=== PATIENT | female | born 1960 | race Caucasian/White ===

== ENCOUNTER 2020-01-10 18:25 | Emergency (ER) | payer BC ==
[2020-01-10 18:58] VITALS: BP 167/75; PULSE 66
[2020-01-10] MEDS ORDERED: Ondansetron 4 MG Tab.DIS PO ONE (19:55)
[2020-01-10] MEDS ORDERED: Acetaminophen/oxyCODONE 325-5 MG Tab PO ONE (19:55)
--- NOTE | 2020-01-10 19:57 | EDM.PDOC ---
ED HPI GENERAL MEDICAL PROBLEM - General Chief Complaint: Back Pain or Injury Stated Complaint: injury from a fall Time Seen by Provider: 01/10/20 19:46 Source of Information: Reports: Patient, Family History Limitations: Reports: No Limitations - History of Present Illness INITIAL COMMENTS - FREE TEXT/NARRATIVE: 59-year-old female presents to the ED after slipping and falling on the ice while shoveling snow today. She fell about 1400 hrs. She states her feet went out completely from underneath her and she fell very hard primarily on her buttocks and lower back. She has injuries to her left arm and left elbow area but she has full range of motion and these appear to be soft tissue in origin. She denies hitting her head or losing consciousness. She has no neck pain at present. She has no rib pain. Pain is mostly along the right posterior pelvis along the iliac crest and slightly lower. It radiates towards her right hip and into the SI joint distribution. There is also mild mild pain at the lower lumbar spine area making it difficult to weight-bear. She is walking with a terrible limp when she weight bares. She has chronic left-sided knee pain. She states she did not injure her lower extremities during the fall.. Onset: Today Onset Date: 01/10/20 Onset Time: 14:00 Duration: Hour(s): Location: Reports: Back. Denies: Head, Face, Neck, Chest, Pelvis Quality: Reports: Ache (Right lower back and right posterior iliac crest area and right SI joint area), Throbbing Severity: Moderate (6 out of 10.) Improves with: Reports: Rest Worsens with: Reports: Other Context: Reports: Trauma (Shoveling snow earlier today.). Denies: Activity ( With trying to put weight on the right lower extremity), Exercise, Lifting, Sick Contact Associated Symptoms: Reports: No Other Symptoms. Denies: Confusion, Chest Pain , Cough, cough w sputum, Diaphoresis, Fever/Chills, Headaches, Loss of Appetite , Malaise, Nausea/Vomiting, Rash, Seizure, Shortness of Breath, Syncope Treatments CUSTOMER SUPPORT EXECUTIVE: Reports: Acetaminophen Right Lower Back Pain Score (Numeric/FACES): 8 - Related Data Allergies Allergy/AdvReac Type Severity Reaction Status Date / Time allopurinol AdvReac Cough Verified 01/10/20 18:36 lisinopril AdvReac Cough Verified 11/02/18 14:19 Home Meds: Home Meds Levothyroxine Sodium [Synthroid] 200 mcg PO DAILY 11/10/14 [History] Losartan [Cozaar] 50 mg PO DAILY 11/10/14 [History] hydroCHLOROthiazide [Hydrochlorothiazide] 25 mg PO DAILY 11/10/14 [History] Multivitamin [Multivitamins] 1 each PO DAILY 07/04/16 [History] Aspirin [Low Dose Aspirin EC] 81 mg PO DAILY 11/02/18 [History] Rosuvastatin [Crestor] 5 mg PO DAILY 11/02/18 [History] metFORMIN [Glucophage] 500 mg PO DAILY 11/02/18 [History] oxyCODONE HCl/Acetaminophen [Percocet 5-325 mg Tablet] 1 - 2 each PO Q4H PRN # 20 tablet 01/10/20 [Rx] Past Medical History HEENT History: Reports: Impaired Vision Other HEENT History: wears eyeglasses. Cardiovascular History: Reports: High Cholesterol, Hypertension Other Cardiovascular History: cardiomegaly Respiratory History: Reports: None Gastrointestinal History: Reports: Diverticulosis, GERD, Hiatal Hernia Genitourinary History: Reports: Urinary Incontinence PATTERN MAKER History: Reports: Musculoskeletal History: Reports: None Neurological History: Reports: None Psychiatric History: Reports: None Endocrine/Metabolic History: Reports: Diabetes, Type II, Hypothyroidism, Obesity /BMI 30+ Hematologic History: Reports: Blood Transfusion(s) Immunologic History: Reports: None Oncologic (Cancer) History: Reports: Colon, Thyroid Dermatologic History: Reports: None - Infectious Disease History Infectious Disease History: Reports: Chicken Pox, Measles, Mumps - Past Surgical History GI Surgical History: Reports: Colon, Hernia, Abdominal Female Surgical History: Reports: D&C, Hysterectomy, Salpingo-Oophorectomy Endocrine Surgical History: Reports: Thyroidectomy Social & Family History - Family History Family Medical History: Noncontributory - Tobacco Use Smoking Status *Q: Never Smoker - Caffeine Use Caffeine Use: Reports: Coffee, Soda - Recreational Drug Use Recreational Drug Use: No - Living Situation & Occupation Living situation: Reports: , with Spouse, with Family (2 granddaughters) 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 Denies: Chest Pain, Claudication, Edema, Lightheadedness, Orthopnea, Palpitations Endocrine: Reports: Fatigue GI/Abdominal: Reports: No Symptoms : Reports: Frequency Musculoskeletal: Reports: Back Pain (Back pain. Today pain is mostly felt along the posterior aspect of the right iliac crest and her lower back a L4-L5 area and in the SI joint area of her right buttock.), Joint Pain (He has osteoarthritic changes in her knees hips neck and lower back.) Skin: Reports: Bruising (He has bruises forming over the left lateral proximal forearm and left posterior mid humerus but has full unopposed range of motion of the arm and forearm with full pronation supination. Upper extremity is uninjured. She has no chest wall tenderness.) Neurological: Reports: No Symptoms, Confusion, Dizziness, Headache. Denies: Numbness Psychiatric: Reports: No Symptoms Hematologic/Lymphatic: Reports: No Symptoms Immunologic: Reports: No Symptoms ED EXAM,LOWER BACK PAIN/INJURY - Physical Exam Exam: See Below Exam Limited By: No Limitations General Appearance: Alert, WD/WN, Mild Distress, Other (Temperature is 36.4. Heart rate was 66. Respiratory to 16 O2 sats are 94% on room air BP is elevated 1 6775 when she first came in.) Head: Atraumatic, Normocephalic, Other Neck: Normal Inspection (No outward signs of any head or facial trauma.), Supple , Non-Tender, Full Range of Motion. No: Lymphadenopathy (L), Lymphadenopathy (R ) Respiratory/Chest: No Respiratory Distress, Lungs Clear, Normal Breath Sounds, No Accessory Muscle Use, Chest Non-Tender Cardiovascular: Normal Peripheral Pulses, Regular Rate, Rhythm, No Gallop, No Murmur, No Rub. No: No Edema GI/Abdominal: Normal Bowel Sounds, Soft, Non-Tender, No Organomegaly, No Mass, Pelvis Stable, Other (Abdominal girth limits ability to palpate solid organs.) Back Exam: Other (Examination of the back shows some tenderness at the L4-L5 facet joints bilaterally a little worse on the right side as compared to the left. There is no midline tenderness. There is no SI joint tenderness on the left side. On the right side there is a linear band of swelling and superficial abrasion along the iliac crest on the right side and just inferior to it. It is a band that travels up towards the lateral iliac crest. There is tenderness on palpation of the superior aspect of the sacroiliac joint. No tenderness over the greater trochanteric process or hip. She is able to weight- bear but walks with a terrible limp. ) Extremities: Pedal Edema, Other (Pitting edema both lower extremities. Patient has) Neurological: Alert ( bilateral osteoarthritic changes in both knees. No injuries evident.), Normal Mood/Affect, Normal Dorsiflexion, CN II-XII Intact, No Motor/Sensory Deficits, Oriented x 3. No: Normal Gait Psychiatric: Normal Affect, Normal Mood Skin Exam: Dry, Intact, Normal Color, No Rash Course - Vital Signs Last Recorded V/S: Last Vital Signs Temp 36.4 C 01/10/20 18:33 Pulse 66 01/10/20 18:33 Resp 16 01/10/20 18:33 BP 167/75 H 01/10/20 18:33 Pulse Ox 94 L 01/10/20 18:33 - Orders/Labs/Meds Orders: Active Orders 24 hr Category Date Time Status Humerus Lt [CR] Stat Exams 01/10/20 20:37 Taken Lumbar Spine 2 or 3V [CR] Stat Exams 01/10/20 19:57 Taken Pelvis 1V or 2V [CR] Stat Exams 01/10/20 19:55 Taken Meds: Medications Discontinued Medications Generic Name Dose Route Start Last Admin Trade Name Freq PRN Reason Stop Dose Admin Ibuprofen 600 mg 01/10/20 19:54 01/10/20 20:20 Motrin PO 01/10/20 19:55 Not Given ONETIME ONE Ondansetron HCl 4 mg 01/10/20 19:55 01/10/20 20:19 Zofran Odt PO 01/10/20 19:56 4 mg ONETIME ONE Administration Oxycodone/Acetaminophen 1 tab 01/10/20 19:55 01/10/20 20:20 Percocet 325-5 Mg PO 01/10/20 19:56 1 tab ONETIME ONE Administration - Radiology Interpretation Free Text/Narrative:: 59-year-old female presents to the ED for slipping and falling on the ice at about 1400 hrs. today while out shoveling snow. She states her feet went out completely from underneath her and she fell directly on her right lower back and contused mostly her iliac crest and upper buttock on the right side. She also banged her left elbow proximal forearm and her humerus on the left side but has no decreased range of motion and evidence of bony injury no injury to her head or neck or ribs identified. There is a bandlike swelling or hematoma over the posterior inferior aspect of the right iliac crest that extends to the posterior axillary line. She has tenderness in the superior portion of the SI joint. Suspect contusion only but x-rays of her pelvis will be obtained as well as her lumbar spine. She has tenderness of the facet joints of both L4 and L5 on both sides of her lower back. Conner a x-ray of her left humerus although I do not feel that clinically she has any fractures. She has a bruise to the deltoid and mid humerus on the extensor surface. Been Motrin 600 mg p.o. and Percocet 5/325 mg 1 tablet p.o. with Zofran 4 mg sublingually for pain which she rates as 7 out of 10. - Re-Assessments/Exams Free Text/Narrative Re-Assessment/Exam: 01/10/20 20:57 x-rays of the pelvis do not reveal any fractures. SI joint is intact. Posterior iliac wing on the side is within normal limits. Similarly x- rays of her lumbar spine revealed minimal retrolisthesis of L4 on L5 less than 20%. No compression fractures are identified. No oral spinous or transverse process fractures identified. X-rays of the left humerus again do not reveal any fractures. There is mild degenerative arthritis in the shoulder particular at the acromioclavicular joint. Similarly in the pelvis there is significant degenerative arthritis of both hips particularly on the left side. 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 Single to have some pain with sitting for about a week. I will give her a note to excuse her from the workplace for the next week. She does have a walker at home and have advised her to use it to maintain her balance for the next 3 to 4 days until the pain settles down. Ice pack to the area 1/2-hour out of every 4 hours to reduce pain and inflammation and swelling. I will send her home with Percocet tabs 5/ 325 mg 1 or 2 every 6 hours as needed for pain relief in addition to Motrin 600 mg every 6 hours for pain relief. He is to expect to be much more stiff and sore tomorrow. Departure - Departure Time of Disposition: 21:00 Disposition: Home, Self-Care 01 Condition: Fair Clinical Impression: Contusion of left upper arm, initial encounter, Contusion of left forearm, initial encounter, Contusion of lower back and pelvis, initial encounter Fall Qualifiers: Encounter type: initial encounter Qualified Code(s): W19.XXXA - Unspecified fall, initial encounter - Discharge Information *PRESCRIPTION DRUG MONITORING PROGRAM REVIEWED*: Not Applicable *COPY OF PRESCRIPTION DRUG MONITORING REPORT IN PATIENT ANDREA: Not Applicable Prescriptions: oxyCODONE HCl/Acetaminophen [Percocet 5-325 mg Tablet] 1 - 2 each PO Q4H PRN # 20 tablet PRN Reason: pain relief. Instructions: Contusion, [id number] Referrals: Hailee Acevedo MD [Primary Care Provider] - Forms: ED Department Discharge, ED Return to Work/School Form Additional Instructions: Patient in the emergency room he sustained from a slip and fall on the ice while shoveling snow earlier this afternoon. Direct blow to the right pelvic bone posteriorly which we call the iliac crest and the upper iliac wing of the pelvis. Strain of the lower back. X-rays of the pelvis do not reveal any broken bones similarly x-rays of the lower back did not reveal any broken bones or compression fractures. Injuries are there are 3 or soft tissue in origin with contusion to the underlying muscles and bone. Treatment is ice pack to the area 1/2-hour out of every 4 hours for the next couple of days. After that may apply heat to the area. Just using Motrin 600 mg every 6 hours to relieve pain and inflammation. Use Percocet tablets 5/325 mg 1 or 2 every 4-6 hours as necessary for pain relief not controlled by Motrin alone for the next 3 to 4 days. Suggest using a walker at home to aid ambulation as the right hip will feel like it wants to give out with weightbearing at times. Suffered contusions to the left upper extremity including the proximal forearm and the upper arm i.e. humerus and shoulder. X-rays did not reveal any broken bones in the upper extremity. You will need to be off work for a minimum of 7 days due to the inability to walk very well for the next week or so. Likely of pain in the left posterior pelvis for the next 3 weeks. Follow-up with personal care physician if any further problems occur Sepsis Event Note - Evaluation Sepsis Screening Result: No Definite Risk - Focused Exam Vital Signs: Vital Signs Temp Pulse Resp BP Pulse Ox 01/10/20 18:33 36.4 C 66 16 167/75 H 94 L Date Exam was Performed: 01/10/20 Time Exam was Performed: 20:57 - My Orders Last 24 Hours: My Active Orders 01/10/20 19:55 Pelvis 1V or 2V [CR] Stat 01/10/20 19:57 Lumbar Spine 2 or 3V [CR] Stat 01/10/20 20:37 Humerus Lt [CR] Stat - Assessment/Plan Last 24 Hours: My Active Orders 01/10/20 19:55 Pelvis 1V or 2V [CR] Stat 01/10/20 19:57 Lumbar Spine 2 or 3V [CR] Stat 01/10/20 20:37 Humerus Lt [CR] Stat
[2020-01-10] MEDS: Ibuprofen 600 MG Tab PO ONE ×2 (20:19→20:20)
--- NOTE | 2020-01-11 08:33 | CR ---
Pelvis: AP view of the pelvis was obtained. Comparison: No prior pelvis exam is available. Joint spaces within both hips are preserved. Sacroiliac joints appear within normal limits. Bony structures are slightly osteopenic. No discrete fracture or other bony abnormality is seen. Impression: 1. Osteopenia. Nothing acute is appreciated on AP pelvis exam. Diagnostic code #1 This report was dictated in [place] Standard Time
--- NOTE | 2020-01-11 08:33 | CR ---
Lumbar spine: AP and lateral views of the lumbar spine were obtained. Comparison: No previous study. Spondylolisthesis noted at L5-S1 measuring over 1 cm which is most likely due to degenerative apophyseal change or nonvisualized spondylolytic defects. Fairly severe disc space narrowing is also noted at L5-S1. Minimal spondylolisthesis is noted at L4-L5 and L3-L4. Minimal anterior wedging is noted of T11 and T12 as well as diffuse endplate osteophytes. Pedicles are intact. No acute abnormality is appreciated. Single surgical clips are seen within the abdomen. Impression: 1. Degenerative change as noted above. 2. Nothing acute is appreciated on two-view lumbar spine exam. Diagnostic code #2 This report was dictated in [place] Standard Time
--- NOTE | 2020-01-11 08:33 | CR ---
Left humerus: Two views of the left humerus were obtained. Comparison: No prior humerus study. No fracture or other bony abnormality is appreciated. Impression: 1. No abnormality is identified on left humerus exam. Diagnostic code #1 This report was dictated in [place] Standard Time
== END 2020-01-10 21:20 | disposition home or self-care (01) ==
LOC: JD.ED 18:25
DX: S30.0XXA Contusion of lower back and pelvis, initial encounter (principal); S40.022A Contusion of left upper arm, initial encounter; S50.12XA Contusion of left forearm, initial encounter; E78.00 Pure hypercholesterolemia, unspecified; I10 Essential (primary) hypertension; E11.9 Type 2 diabetes mellitus without complications; E03.9 Hypothyroidism, unspecified; Z79.84 Long term (current) use of oral hypoglycemic drugs; Z68.43 Body mass index [BMI] 50.0-59.9, adult; Z88.8 Allergy status to other drugs, medicaments and biological substances; Z79.82 Long term (current) use of aspirin; W00.0XXA Fall on same level due to ice and snow, initial encounter; Y93.H1 Activity, digging, shoveling and raking
CPT/HCPCS: 72100; 72170; 73060; 99283; A9270